=== PATIENT | male | born 1990 | race Two or more races ===

== ENCOUNTER 2021-08-02 20:59 | Emergency (ER) | payer SELFPAY ==
[~2021-08-02] VITALS: Ht 180.3 cm; Wt 86.2 kg
[2021-08-02] MEDS ORDERED: ONDANSETRON HCL 4 MG/2 ML VIAL IV ONE (21:15)
[2021-08-02] MEDS ORDERED: SODIUM CHLORIDE 0.9% 1,000 ML IVB ONE (21:15)
[2021-08-02] MEDS ORDERED: IOHEXOL 350 MG/ML 100ML IJ ONE ×2 (21:20→22:00)
[2021-08-02 21:52] LABS: Basophils # (auto) 0.1 10 ^3/uL (0-0.2); Basophils % (auto) 0.5 % (0.0-2.0); Eosinophils # (auto) 0.4 10 ^3/uL (0-0.8); Eosinophils % (auto) 3.8 % (0.0-7.0); Hemoglobin 13.7 g/dL (13.5-17.5); Lymphocytes # (auto) 3.3 10 ^3/uL (0.4-5.4); Lymphocytes % (auto) 34.9 % (10.0-50.0); Mean Corpuscular Hemoglobin 30.4 pg (28.0-32.0); Mean Corpuscular Hgb Conc. 35.2 g/dL (32.0-36.0); Mean Corpuscular Volume 86.3 fL (80.0-100.0); Monocytes # (auto) 0.9 10 ^3/uL (0-1.3); Monocytes % (auto) 9.2 % (0.0-12.0); Neutrophils % (auto) 51.6 % (37.0-80.0); Nucleated Red Blood Cells % 0.1 %; Red Blood Cells 4.52 10^6/uL (4.5-5.90); Red Cell Distribution Width 13.5 % (11.8-14.3); White Blood Cell 9.6 10^3/uL (4.4-10.8)
[2021-08-02 22:03] LABS: Albumin 3.2 g/dL (3.4-5.0); Calcium 8.5 mg/dL (8.5-10.1); Potassium 4.1 mmol/L (3.5-5.1)
[2021-08-02 22:07] LABS: BUN/Creatinine Ratio 19.8; Bilirubin, Total 0.6 mg/dL (0.2-1.0); Total Protein 6.3 g/dL (6.4-8.2)
[2021-08-02 23:31] VITALS: BP 112/74
[2021-08-02] MEDS ORDERED: BACL5TAB2 PO (23:50)
== END 2021-08-03 00:24 | disposition home or self-care (01) ==
LOC: ER 21:02
DX: S16.1XXA Strain of muscle, fascia and tendon at neck level, initial encounter (principal); V00.831A Fall from motorized mobility scooter, initial encounter; Y93.89 Activity, other specified; Y92.89 Other specified places as the place of occurrence of the external cause; Y99.8 Other external cause status
CPT/HCPCS: 36415; 70450; 71260; 72125; 74177; 80053; 85025; 96361; 96374; 99285; J2405; J7030; Q9967

== ENCOUNTER 2022-05-12 19:43 | Emergency (ER) | payer SELFPAY ==
[~2022-05-12] VITALS: Ht 180.3 cm; Wt 82.2 kg
[~2022-05-12 19:43] MED LIST: BACL5TAB2 PO
[2022-05-12] MEDS ORDERED: KETOROLAC TROMETH 60MG/2ML VIAL IM ONE (21:15)
[2022-05-12 22:14] VITALS: BP 130/76
== END 2022-05-12 22:42 | disposition left against medical advice (07) ==
LOC: ER 19:43
DX: M79.641 Pain in right hand (principal); Z53.29 Procedure and treatment not carried out because of patient's decision for other reasons; Z98.890 Other specified postprocedural states
CPT/HCPCS: 96372; 99283; J1885

== ENCOUNTER 2022-06-22 16:57 | Emergency (ER) | payer SELFPAY ==
[~2022-06-22] VITALS: Ht 154.9 cm; Wt 83.0 kg
[2022-06-22 20:11] VITALS: BP 126/92
== END 2022-06-22 20:13 | disposition home or self-care (01) ==
LOC: ER 16:57
DX: S62.91XA Unspecified fracture of right hand, initial encounter for closed fracture (principal); Y08.89XA Assault by other specified means, initial encounter; Y93.89 Activity, other specified; Y92.89 Other specified places as the place of occurrence of the external cause; Y99.8 Other external cause status
CPT/HCPCS: 29125; 73110; 73130